=== PATIENT | female | born 2000 | race Caucasian/White ===

== ENCOUNTER 2022-11-10 01:22 | Inpatient (IN) ==
[2022-11-10] MEDS ORDERED: OXYTOCIN 30 UNITS/500 ML BAG IV PRN ×2 (03:34→04:05)
[2022-11-10] MEDS ORDERED: LIDOCAINE 1% LOCAL 20 ML VIAL INFIL PRN (03:34)
[2022-11-10] MEDS ORDERED: ePHEDrine sulfate 50 MG/ML AMP ONE (03:40)
[2022-11-10] MEDS ORDERED: fentaNYL citrate PF 100 MCG/2 ML VIAL ONE (03:40)
[2022-11-10] MEDS ORDERED: SODIUM CHLORIDE 0.9% PF INJ 10 ML VIAL ONE (03:40)
[2022-11-10] MEDS ORDERED: LIDOCAINE 2%/EPINEPHRINE 1:200,000 20 ML PF ONE ×2 (03:41→17:47)
[2022-11-10] MEDS ORDERED: fentaNYL 2MCG/ML ROPIVACAINE 1.25MG/ML 100 ML BAG EPI ONE (03:41)
[2022-11-10] MEDS ORDERED: BUPIVACAINE 0.25% PF 30 ML VIAL ONE (03:41)
[2022-11-10] MEDS: LACTATED RINGER'S 1,000 ML IV PRN ×4 (03:45→10:32)
--- NOTE | 2022-11-10 04:00 | History & Physical Report ---
Date of Service November 10, 2022 Assessment & Plan (1) with 38 completed weeks gestation: (2) Normal labor: Plan admit for early labor. epidural on demand. fetus category one. pit/arom as indicated. anticipate . Admission and Anticipated Discharge Date Admission Date: November 10, 2022 History of Present Illness Chief Complaint: contractions Primary Care Provider: NO PCP Patient is a 21yowf with iup at 38 4/7 weeks. she presents to labor and delivery with painful contractions. Was initially 1cm on admission and was monitored. Her contractions became much more painful to the point where she could not stand them and requested and epidural. She made cervical change to 3/100 and was admitted. The has been uncomplicated. OB Labs: Blood Type B Positive 04/28/22 Antibody Screen NEGATIVE 04/28/22 Hemoglobin 12.5 g/dl (12.0-16.0) 09/01/22 Hematocrit 37.9 % (37.0-47.0) 09/01/22 Mean Corpuscular Volume 86.1 fL (80.0-100.0) 04/28/22 Platelet Count 228 K/uL (130-400) 04/28/22 Rubella IgG Antibody Immune (Immune) 04/28/22 Rapid Plasma Reagin Nonreactive (Nonreactive) 04/28/22 Hepatitis B Surface Antigen. NON-REACTIVE (NON-REACTIVE) 04/28/22 Hepatitis C Antibody (EIA) NON-REACTIVE (NON-REACTIVE) 04/28/22 HIV (1&2) Ag and Ab Confirmation NON-REACTIVE (NON-REACTIVE) 04/28/22 Glucose 1 Hour 50 gm Load 132 mg/dl (70-130) H 09/01/22 OB Optional Labs: Chlamydia trachomatis RNA Not Detected (NotDetected) 04/28/22 Neisseria gonorrhoeae RNA Not Detected (NotDetected) 04/28/22 Labs Reviewed: cf/sma declines smp cfDNA low risk smp Declines msafp--mln gbs neg Allergies Allergy/AdvReac Type Severity Reaction Status Date / Time No Known Allergies Allergy Verified 11/03/22 13:37 Home Medications Medication Instructions Recorded Confirmed Type folic acid PO 04/25/22 11/03/22 History prenat.vits,leonel,gza-uhst-ovuwe 1 tab PO DAILY 01/06/23 07/17/23 History Patient History Medical History Varicella vaccination Surgical History No history of previous surgery Family History Grandfather (Paternal) Colorectal cancer Denies family history of Ovarian cancer Breast cancer Social History Smoking Status: Never smoker Second Hand Exposure: No; Do You Dip or Chew Tobacco: No; Tobacco Cessation Education Requested by Patient: No Hx Alcohol Use: No Hx Substance Use: No Preferred Language: Trinidadian Communication Ability: Effective Coal Shooter Required: No Beliefs That Will Affect Care: None marital status: marital status details: Sadiq Key [phone] Current Living Situation: Spouse Current Living Situation Comment: Lives with 2 dogs, and 2 cats current occupational status: employed 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 [employer] Feels Safe at Home: Yes Safety Concerns: Feels Safe At This Time Assistive Devices: Glasses OB History g1--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
[2022-11-10] MEDS ORDERED: BUTORPHANOL TARTRATE 1 MG/ML VIAL IV ONE (04:04)
[2022-11-10] MEDS ORDERED: BUTORPHANOL TARTRATE 1 MG/ML VIAL ONE (04:07)
[2022-11-10 04:08] LABS: Hematocrit (blood only) 37.8 % (37.0-47.0); Hemoglobin 12.4 g/dl (12.0-16.0); Mean Corpuscular Hemoglobin 28.1 pg (25.0-34.0); Mean Corpuscular Hgb Conc 32.8 g/dL (32.0-36.0); Mean Corpuscular Volume 85.7 fL (80.0-100.0); Mean Platelet Volume 11.4 fL (9.4-12.4); Platelet Count 204 K/uL (130-400); RDW Coefficient of Variation 14.2 % (11.5-14.5); Red Blood Count 4.41 M/uL (4.20-5.40); White Blood Count 12.35 K/ul (4.8-10.8)
[2022-11-10] MEDS ORDERED: NALOXONE HCL 1 MG in SODIUM CHLORIDE 0.9% 1000ML 1,000 ML IV PRN ×2 (04:42→21:18)
[2022-11-10] MEDS ORDERED: diphenhydrAMINE 50 MG/ML VIAL IV PRN ×2 (04:42→21:18)
[2022-11-10] MEDS ORDERED: ePHEDrine sulfate 50 MG/ML AMP IV PRN ×2 (04:42→21:18)
[2022-11-10] MEDS ORDERED: BUPIVACAINE 0.25% PF 30 ML VIAL EPI STA (04:42)
[2022-11-10] MEDS ORDERED: ROPIVACAINE 0.5% PF 5 MG/ML 20 ML VIAL EPI PRN (04:42)
[2022-11-10] MEDS ORDERED: BUPIVACAINE 0.25% PF 30 ML VIAL EPI PRN (04:42)
[2022-11-10] MEDS ORDERED: ONDANSETRON INJ 2 MG/ML 2 ML VIAL IV PRN ×2 (04:42→21:18)
[2022-11-10] MEDS ORDERED: fentaNYL 2MCG/ML ROPIVACAINE 1.25MG/ML 100 ML BAG EPI PRN (04:42)
[2022-11-10] MEDS ORDERED: fentaNYL citrate PF 100 MCG/2 ML VIAL EPI STA (04:42)
[2022-11-10] MEDS ORDERED: fentaNYL citrate PF 100 MCG/2 ML VIAL EPI PRN (04:42)
[2022-11-10] MEDS ORDERED: SODIUM CHLORIDE 0.9% PF INJ 10 ML VIAL EPI PRN (04:42)
[2022-11-10] MEDS ORDERED: NALBUPHINE HCL INJ 10 MG/ML AMP IV PRN ×2 (04:42→21:18)
[2022-11-10] MEDS ORDERED: LIDOCAINE 2% MPF LOCAL 5 ML VIAL EPI PRN (04:42)
[2022-11-10] MEDS ORDERED: SODIUM CHLORIDE 0.9% PF INJ 10 ML VIAL EPI STA (04:42)
[2022-11-10] MEDS ORDERED: NALOXONE HCL 0.4 MG/1 ML VIAL/CARP IV PRN ×2 (04:42→21:18)
[2022-11-10] MEDS ORDERED: LIDOCAINE 2%/EPINEPHRINE 1:200,000 20 ML PF EPI STA (04:42)
--- NOTE | 2022-11-10 04:42 | Anesthesiology Consultation ---
Date of Service November 10, 2022 Assessment & Plan Chart Review Chart Review: Acceptable Risk for Labor Epidural ASA ASA2 Proposed Anesthesia Anesthesia Type: Labor Epidural Risk / Benefits Reviewed With: PT / POA / Parent / Guardian, Accepts Plan and Informed Consent Obtained History Height/Weight Height: 5 ft 2 in Weight: 85.729 kg Allergies Allergy/AdvReac Type Severity Reaction Status Date / Time No Known Allergies Allergy Verified 11/03/22 13:37 Medications Home Medications Medication Instructions Recorded Confirmed Last Taken folic acid PO 04/25/22 11/03/22 11/09/22 21:00 prenat.vits,leonel,icq-lpxo-ogsey 1 tab PO DAILY 04/25/22 11/10/22 11/09/22 21:00 Active Medications Generic Name Dose Route Start Last Admin Trade Name Freq PRN Reason Stop Dose Admin Lactated Ringer's 1,000 mls @ 125 mls/hr 11/10/22 03:34 11/10/22 04:41 Lr IV 11/12/22 03:33 999 mls/hr .Q8H PRN Administration L&D Protocol Protocol Past Medical History Medical History Varicella vaccination Exercise / Class Metabolic Activity II 4-5 Yardwork/Stairs/Walk up hill Past Family History Family History Grandfather (Paternal) Colorectal cancer Denies family history of Ovarian cancer Breast cancer Past Surgical History Surgical History No history of previous surgery Past Anesthesia History No Hx of Anesthesia Complications and No Family Hx of Anesthesia Complications History of PONV No Hx of PONV and No Hx of Motion Sickness Social History Smoking Status: Never smoker Do You Dip or Chew Tobacco: No Hx Alcohol Use: No Hx Substance Use: No substance use type: does not use Review of Systems denies fever/cough/ colds/ chest pain/ SOB/ MERLYN denies MERLYN Physical Exam Vital Signs Last Vital Signs Temp 36.8 C 11/10/22 01:45 Pulse 137 H 11/10/22 05:14 Resp 16 11/10/22 01:45 BP 103/51 L 11/10/22 05:14 Pulse Ox 98 11/10/22 05:12 ENMT Mouth: no TMJ abnormality and no dentition abnormality Thyromental Distance: > or= 3.5 Finger Breadths Mallampati Class: II Neck neck extension not limited Respiratory normal respiratory effort; no respiratory distress Auscultation: lungs clear to auscultation bilaterally Cardiovascular Rate/Rhythm: regular rate and regular rhythm Neurologic moves all extremities Psychiatric Orientation: alert and oriented x 3 Testing Laboratory Results 11/10/22 03:48
--- NOTE | 2022-11-10 06:35 | Labor Progress Brief Note ---
Date of Service November 10, 2022 Subjective comfortable with epidural Assessment & Plan (1) Normal labor: (2) with 38 completed weeks gestation: Plan continue current management. fetus overall category one. anticipate . Admission and Anticipated Discharge Date Admission Date: November 10, 2022 Physical Exam Constitutional: WD/WN, vitals as above Psychiatric: A+Ox3, euthymic affect Genitourinary: cx--4-5/90/-2 toco--q2-3min efm--155 with mod variability small accels noted, +scalp stim, no decels Results & Data Vital Signs (Past 12 Hours) Vital Signs Temp Pulse Resp BP Pulse Ox 11/10/22 01:40 36.8 C 18 11/10/22 01:45 36.8 C 86 16 140/66 11/10/22 06:27 101 H 97 11/10/22 06:24 112 H 129/59 L 11/10/22 06:22 92 H 99 11/10/22 06:17 97 H 100 11/10/22 06:15 95 H 91 11/10/22 06:12 96 H 97 11/10/22 06:10 106 H 134/60 11/10/22 06:07 89 99 11/10/22 06:02 94 H 99 11/10/22 05:57 100 11/10/22 05:57 102 H 11/10/22 05:57 103 H 90 11/10/22 05:54 93 H 128/61 11/10/22 05:52 105 H 100 11/10/22 05:47 104 H 99 11/10/22 05:42 102 H 99 11/10/22 05:40 104 H 133/64 11/10/22 05:37 98 H 99 11/10/22 05:32 110 H 95 11/10/22 05:27 99 H 97 11/10/22 05:23 110 H 115/57 L 11/10/22 05:22 109 H 97 11/10/22 05:17 97 11/10/22 05:17 102 H 11/10/22 05:17 102 H 100/50 L 11/10/22 05:14 137 H 103/51 L 11/10/22 05:12 98 11/10/22 05:12 92 H 11/10/22 05:12 85 107/57 L 11/10/22 05:10 88 120/62 11/10/22 05:08 85 121/76 11/10/22 05:07 92 H 97 11/10/22 05:04 86 120/85 11/10/22 05:03 80 91 11/10/22 05:02 94 H 97 11/10/22 04:59 99 H 150/85 H 11/10/22 04:57 86 98 11/10/22 04:52 98 11/10/22 04:52 88 11/10/22 04:52 92 H 135/81 11/10/22 04:28 78 138/83 11/10/22 03:14 76 136/71 11/10/22 01:38 86 140/66 Coding Level of Care Code None Diagnoses Normal labor O80; Z37.9 with 38 completed weeks gestation Z3A.38
--- NOTE | 2022-11-10 07:02 | Obstetrical Progress Note ---
Date of Service November 10, 2022 Assessment & Plan (1) Normal labor: Plan small decel that has resolved. pit currently off. fetus had scalp stim when I recently checked her. She is afebrile. Will continue to monitor closely. Admission and Anticipated Discharge Date Admission Date: November 10, 2022 Subjective Patient had bladder drained and changed to her left side. then had a decel for about 3-4 minutes to the 70-80s that responded to position change, pit off, bolus. Physical Exam Constitutional: WD/WN, vitals as above Psychiatric: A+Ox3, euthymic affect Genitourinary: toco--q2-3, pit at 5, was not a prolonged contraction strip review. Initial baseline was in the 130s and shortly after the epidural baseline increased to the 150s. there have been a couple of variable type decelerations noted since then, until this most recent 3-4 minute decel that has resolved. Baseline now 150s with min to mod variability. Results & Data Vital Signs (Past 12 Hours) Vital Signs Temp Pulse Resp BP Pulse Ox 11/10/22 01:40 36.8 C 18 11/10/22 01:45 36.8 C 86 16 140/66 11/10/22 06:57 103 H 98 11/10/22 06:52 109 H 99 11/10/22 06:53 112 H 93 11/10/22 06:47 91 H 97 11/10/22 06:45 92 H 132/63 11/10/22 06:42 102 H 96 11/10/22 06:37 100 H 98 11/10/22 06:32 97 H 97 11/10/22 06:27 101 H 97 11/10/22 06:24 112 H 129/59 L 11/10/22 06:22 92 H 99 11/10/22 06:17 97 H 100 11/10/22 06:15 95 H 91 11/10/22 06:12 96 H 97 11/10/22 06:10 106 H 134/60 11/10/22 06:07 89 99 11/10/22 06:02 94 H 99 11/10/22 05:57 100 11/10/22 05:57 102 H 11/10/22 05:57 103 H 90 11/10/22 05:54 93 H 128/61 11/10/22 05:52 105 H 100 11/10/22 05:47 104 H 99 11/10/22 05:42 102 H 99 11/10/22 05:40 104 H 133/64 11/10/22 05:37 98 H 99 11/10/22 05:32 110 H 95 11/10/22 05:27 99 H 97 11/10/22 05:23 110 H 115/57 L 11/10/22 05:22 109 H 97 11/10/22 05:17 97 11/10/22 05:17 102 H 11/10/22 05:17 102 H 100/50 L 11/10/22 05:14 137 H 103/51 L 11/10/22 05:12 98 11/10/22 05:12 92 H 11/10/22 05:12 85 107/57 L 11/10/22 05:10 88 120/62 11/10/22 05:08 85 121/76 11/10/22 05:07 92 H 97 11/10/22 05:04 86 120/85 11/10/22 05:03 80 91 11/10/22 05:02 94 H 97 11/10/22 04:59 99 H 150/85 H 11/10/22 04:57 86 98 11/10/22 04:52 98 11/10/22 04:52 88 11/10/22 04:52 92 H 135/81 11/10/22 04:28 78 138/83 11/10/22 03:14 76 136/71 11/10/22 01:38 86 140/66 PG Care Time/CCT Total # of Minutes Spent Total Time Spent with Patient: Total time spent is greater than 50% in coordination of care (as documented) at patient's floor/unit and/or counseling patient: Coding Level of Care Code None Diagnoses Normal labor O80; Z37.9
[2022-11-10] MEDS ORDERED: ACETAMINOPHEN 500 MG TAB PO STA (12:20)
[2022-11-10] MEDS ORDERED: GENTAMICIN SULFATE 430 MG in DEXTROSE 5% 100 ML IV STA (12:21)
[2022-11-10] MEDS ORDERED: GENTAMICIN CONSULT ACTIVE PRN (12:21)
--- NOTE | 2022-11-10 12:26 | Labor Progress Brief Note ---
Date of Service November 10, 2022 Subjective Comfortable with epidural. Feeling hot, temp 38.2, maternal and tachycardia. Discussed diagnosis of chorioamnionitis with patient. Will start ampicillin 2g Q6h, gentamicin 5mg/kg Q24h. Will give dose of tylenol. FHT 160-170s, mod adam, +accels, occ decels - variable, not recurrent. SVE 5-6/100/0 Continue labor, abx for chorio. Assessment & Plan Admission and Anticipated Discharge Date Admission Date: November 10, 2022 Results & Data Vital Signs (Past 12 Hours) Vital Signs Temp Pulse Resp BP Pulse Ox 11/10/22 01:40 36.8 C 18 11/10/22 01:45 36.8 C 86 16 140/66 11/10/22 12:17 107 H 99 11/10/22 12:15 111 H 92 11/10/22 12:12 96 H 96 11/10/22 12:10 100 H 128/60 11/10/22 12:07 99 H 98 11/10/22 12:02 97 H 97 11/10/22 11:57 96 H 97 11/10/22 11:55 94 H 103/58 L 11/10/22 11:52 92 H 96 11/10/22 11:01 20 11/10/22 11:01 20 11/10/22 11:47 96 H 98 11/10/22 11:42 100 H 100 11/10/22 11:40 101 H 118/55 L 11/10/22 11:37 98 H 97 11/10/22 11:32 95 H 97 11/10/22 11:27 107 H 96 11/10/22 11:25 114 H 11/10/22 11:25 108 H 143/90 H 93 11/10/22 11:22 103 H 95 11/10/22 11:17 107 H 96 11/10/22 10:31 20 11/10/22 10:31 20 11/10/22 11:12 98 H 96 11/10/22 11:09 100 H 116/56 L 11/10/22 11:07 101 H 95 11/10/22 09:01 20 11/10/22 09:01 37.2 C 20 11/10/22 11:02 96 H 96 11/10/22 10:59 112 H 93 11/10/22 10:57 100 H 96 11/10/22 10:54 106 H 116/57 L 11/10/22 10:52 99 H 96 11/10/22 10:51 102 H 93 11/10/22 08:31 18 11/10/22 08:31 18 11/10/22 08:01 20 11/10/22 08:01 20 11/10/22 10:47 97 H 97 11/10/22 10:42 102 H 96 11/10/22 10:40 100 H 136/64 11/10/22 10:39 107 H 92 11/10/22 10:37 104 H 96 11/10/22 10:32 104 H 98 11/10/22 10:27 103 H 100 11/10/22 10:25 96 H 115/58 L 11/10/22 10:22 94 H 100 11/10/22 10:17 100 H 100 11/10/22 10:12 101 H 100 11/10/22 10:10 99 H 124/62 11/10/22 10:07 99 H 100 11/10/22 10:02 99 H 100 11/10/22 09:57 101 H 100 11/10/22 09:54 102 H 119/58 L 11/10/22 09:52 101 H 100 11/10/22 09:47 104 H 100 11/10/22 09:42 105 H 100 11/10/22 09:39 108 H 121/56 L 11/10/22 09:37 104 H 100 11/10/22 09:32 99 H 100 11/10/22 09:27 106 H 99 11/10/22 09:25 105 H 124/68 11/10/22 09:22 98 H 100 11/10/22 09:17 111 H 98 11/10/22 09:12 90 97 11/10/22 09:09 93 H 128/65 11/10/22 09:07 104 H 97 11/10/22 09:02 97 11/10/22 09:02 93 H 11/10/22 09:02 101 H 92 11/10/22 08:57 96 H 98 11/10/22 08:54 100 H 138/67 11/10/22 08:52 92 H 97 11/10/22 08:47 95 H 97 11/10/22 08:42 93 H 97 07/24/23 08:40 112 H 130/68 11/10/22 08:37 95 H 97 11/10/22 08:32 106 H 97 11/10/22 08:27 108 H 98 11/10/22 08:24 113 H 144/68 H 11/10/22 08:22 105 H 97 11/10/22 08:17 108 H 97 11/10/22 08:12 110 H 97 11/10/22 08:09 108 H 107/55 L 11/10/22 08:07 94 H 97 11/10/22 08:02 91 H 96 11/10/22 07:57 96 H 99 11/10/22 07:54 103 H 107/53 L 11/10/22 07:52 96 H 97 11/10/22 07:47 101 H 98 11/10/22 07:31 20 11/10/22 07:31 37.3 C 20 11/10/22 07:42 105 H 97 11/10/22 07:39 100 H 108/54 L 11/10/22 07:37 96 H 98 11/10/22 07:32 103 H 99 11/10/22 07:27 107 H 99 11/10/22 07:24 104 H 133/62 11/10/22 07:22 106 H 98 11/10/22 07:17 99 H 98 11/10/22 07:12 97 H 98 11/10/22 07:10 108 H 120/55 L 11/10/22 07:07 100 H 98 11/10/22 07:06 104 H 113/56 L 11/10/22 07:02 100 H 99 11/10/22 06:57 103 H 98 11/10/22 06:52 109 H 99 11/10/22 06:53 112 H 93 11/10/22 06:47 91 H 97 11/10/22 06:45 92 H 132/63 11/10/22 06:42 102 H 96 11/10/22 06:37 100 H 98 11/10/22 06:32 97 H 97 11/10/22 06:27 101 H 97 11/10/22 06:24 112 H 129/59 L 11/10/22 06:22 92 H 99 11/10/22 06:17 97 H 100 11/10/22 06:15 95 H 91 07/24/23 06:12 96 H 97 11/10/22 06:10 106 H 134/60 11/10/22 06:07 89 99 11/10/22 06:02 94 H 99 11/10/22 05:57 100 11/10/22 05:57 102 H 11/10/22 05:57 103 H 90 11/10/22 05:54 93 H 128/61 11/10/22 05:52 105 H 100 11/10/22 05:47 104 H 99 11/10/22 05:42 102 H 99 11/10/22 05:40 104 H 133/64 11/10/22 05:37 98 H 99 11/10/22 05:32 110 H 95 11/10/22 05:27 99 H 97 11/10/22 05:23 110 H 115/57 L 11/10/22 05:22 109 H 97 11/10/22 05:17 97 11/10/22 05:17 102 H 11/10/22 05:17 102 H 100/50 L 11/10/22 05:14 137 H 103/51 L 11/10/22 05:12 98 11/10/22 05:12 92 H 11/10/22 05:12 85 107/57 L 11/10/22 05:10 88 120/62 11/10/22 05:08 85 121/76 11/10/22 05:07 92 H 97 11/10/22 05:04 86 120/85 11/10/22 05:03 80 91 11/10/22 05:02 94 H 97 11/10/22 04:59 99 H 150/85 H 11/10/22 04:57 86 98 11/10/22 04:52 98 11/10/22 04:52 88 11/10/22 04:52 92 H 135/81 11/10/22 04:28 78 138/83 11/10/22 03:14 76 136/71 11/10/22 01:38 86 140/66 Coding Level of Care Code None Diagnoses
[2022-11-10] MEDS: AMPICILLIN 2,000 MG in SODIUM CHLORIDE 0.9% 50 ML IV SCH ×2 (13:23→19:49)
--- NOTE | 2022-11-10 14:43 | Pharmacy Report ---
Pharmacy PK ABX Note - Date of Service November 10, 2022 - Assessment and Plan Assessment 21 year old started on ampicillin and gentamicin for concerns for chorioamnionitis. Febrile with leukocytosis this AM. with 38 completed weeks gestation. Plan Gentamicin * Gentamicin 5 mg/kg iv q 24 hours - extended interval dosing appropriate for intrapartum/ * Renal function labs ordered for tomorrow AM * If therapy continues >72 hours, will consider ordering a trough level 30 min prior to the next dose Pharmacy will continue to follow and will adjust dose/frequency as necessary. Thank you.
--- NOTE | 2022-11-10 15:08 | Labor Progress Brief Note ---
Date of Service November 10, 2022 Subjective Comfortable w/ epidural Assessment & Plan (1) Normal labor: (2) Chorioamnionitis: Plan 21 yo G1 at 38 4/7 wga presented in labor, now dx w/ chorio VS - last temp febrile, just now finishing gent so will recheck Fetus cat 2- tachycardia slightly improved, mod variability, good scalp stim Labor - did have progression from this morning to about noon w/o pit. My exam is unchanged from noon. Has started tx for chorio w/ amp and gent w/ small improvement in baseline. Discussed starting pitocin once antibx have completed. Pt has had pit turned on and off 2x at this point from this morning. Discussed that if fetus does not tolerate pit again that there is likely something else going on and would rec CS due to intolerance. Pt verbalized understanding and in agreement GBS neg epidural prn Admission and Anticipated Discharge Date Admission Date: November 10, 2022 Physical Exam Genitourinary: SVE 5/80/0 EFM 165/mod/+accel/occ variable and early ctx q5-6 Results & Data Vital Signs (Past 12 Hours) Vital Signs Temp Pulse Resp BP Pulse Ox 11/10/22 13:59 101.1 F H 11/10/22 15:02 114 H 96 11/10/22 14:57 107 H 96 11/10/22 14:54 117 H 119/55 L 11/10/22 14:52 126 H 97 11/10/22 14:47 128 H 97 11/10/22 14:42 103 H 96 11/10/22 14:39 93 H 109/54 L 11/10/22 14:37 95 H 95 11/10/22 14:34 102 H 93 11/10/22 14:32 106 H 96 11/10/22 14:27 98 H 95 11/10/22 14:24 104 H 133/56 L 11/10/22 14:22 119 H 97 11/10/22 14:19 101 H 94 11/10/22 14:17 108 H 96 11/10/22 14:12 98 H 95 11/10/22 14:09 100 H 117/58 L 11/10/22 14:07 102 H 95 11/10/22 14:02 106 H 95 11/10/22 13:57 102 H 95 11/10/22 13:54 103 H 120/57 L 11/10/22 13:52 100 H 95 11/10/22 13:47 99 H 95 11/10/22 13:42 97 H 95 11/10/22 13:41 97 H 123/63 11/10/22 13:37 104 H 95 11/10/22 13:32 103 H 95 11/10/22 13:27 103 H 94 11/10/22 13:24 101.1 F H 109 H 20 125/62 11/10/22 13:22 106 H 97 11/10/22 13:17 102 H 97 11/10/22 13:01 20 11/10/22 13:01 20 11/10/22 13:12 94 H 95 11/10/22 13:10 94 H 116/55 L 11/10/22 13:07 98 H 97 11/10/22 13:02 107 H 98 11/10/22 12:57 97 H 96 11/10/22 12:56 92 H 94 11/10/22 12:54 100 H 126/63 11/10/22 12:52 97 H 97 11/10/22 12:47 95 H 97 11/10/22 12:48 95 H 93 11/10/22 12:42 104 H 99 11/10/22 12:39 96 H 124/64 11/10/22 12:37 88 97 11/10/22 12:36 98 H 93 11/10/22 12:31 20 11/10/22 12:31 20 11/10/22 12:32 109 H 95 11/10/22 11:31 20 11/10/22 11:31 20 11/10/22 12:27 105 H 97 11/10/22 12:28 105 H 93 11/10/22 12:25 105 H 123/73 11/10/22 12:22 111 H 97 11/10/22 12:17 107 H 99 11/10/22 12:15 111 H 92 11/10/22 12:12 96 H 96 11/10/22 12:10 101.1 F H 100 H 20 128/60 11/10/22 12:07 99 H 98 11/10/22 12:02 97 H 97 11/10/22 11:57 96 H 97 11/10/22 11:55 94 H 103/58 L 11/10/22 11:52 92 H 96 11/10/22 11:01 20 11/10/22 11:01 20 11/10/22 11:47 96 H 98 11/10/22 11:42 100 H 100 11/10/22 11:40 101 H 118/55 L 11/10/22 11:37 98 H 97 11/10/22 11:32 95 H 97 11/10/22 11:27 107 H 96 11/10/22 11:25 114 H 11/10/22 11:25 108 H 143/90 H 93 11/10/22 11:22 103 H 95 11/10/22 11:17 107 H 96 11/10/22 10:31 20 11/10/22 10:31 20 11/10/22 11:12 98 H 96 11/10/22 11:09 100 H 116/56 L 11/10/22 11:07 101 H 95 11/10/22 09:01 20 11/10/22 09:01 99.0 F 20 11/10/22 11:02 99.0 F 96 H 96 11/10/22 10:59 112 H 93 11/10/22 10:57 100 H 96 11/10/22 10:54 106 H 116/57 L 11/10/22 10:52 99 H 96 11/10/22 10:51 102 H 93 11/10/22 08:31 18 11/10/22 08:31 18 11/10/22 08:01 20 11/10/22 08:01 20 11/10/22 10:47 97 H 97 11/10/22 10:42 102 H 96 11/10/22 10:40 100 H 136/64 11/10/22 10:39 107 H 92 11/10/22 10:37 104 H 96 11/10/22 10:32 104 H 98 11/10/22 10:27 103 H 100 11/10/22 10:25 96 H 115/58 L 11/10/22 10:22 94 H 100 11/10/22 10:17 100 H 100 11/10/22 10:12 101 H 100 11/10/22 10:10 99 H 124/62 11/10/22 10:07 99 H 100 11/10/22 10:02 99 H 100 11/10/22 09:57 101 H 100 11/10/22 09:54 102 H 119/58 L 11/10/22 09:52 101 H 100 11/10/22 09:47 104 H 100 11/10/22 09:42 105 H 100 11/10/22 09:39 108 H 121/56 L 11/10/22 09:37 104 H 100 11/10/22 09:32 99 H 100 11/10/22 09:27 106 H 99 11/10/22 09:25 105 H 124/68 11/10/22 09:22 98 H 100 11/10/22 09:17 111 H 98 11/10/22 09:12 90 97 11/10/22 09:09 93 H 128/65 11/10/22 09:07 104 H 97 11/10/22 09:02 97 11/10/22 09:02 93 H 11/10/22 09:02 101 H 92 11/10/22 08:57 96 H 98 11/10/22 08:54 100 H 138/67 11/10/22 08:52 92 H 97 11/10/22 08:47 95 H 97 11/10/22 08:42 93 H 97 11/10/22 08:40 112 H 130/68 11/10/22 08:37 95 H 97 11/10/22 08:32 106 H 97 11/10/22 08:27 108 H 98 11/10/22 08:24 113 H 144/68 H 11/10/22 08:22 105 H 97 11/10/22 08:17 108 H 97 11/10/22 08:12 110 H 97 11/10/22 08:09 108 H 107/55 L 11/10/22 08:07 94 H 97 11/10/22 08:02 91 H 96 11/10/22 07:57 96 H 99 11/10/22 07:54 103 H 107/53 L 11/10/22 07:52 96 H 97 11/10/22 07:47 101 H 98 11/10/22 07:31 20 11/10/22 07:31 99.1 F 20 11/10/22 07:42 105 H 97 11/10/22 07:39 100 H 108/54 L 11/10/22 07:37 96 H 98 11/10/22 07:32 103 H 99 11/10/22 07:27 107 H 99 11/10/22 07:24 104 H 133/62 11/10/22 07:22 106 H 98 11/10/22 07:17 99 H 98 11/10/22 07:12 97 H 98 11/10/22 07:10 108 H 120/55 L 11/10/22 07:07 100 H 98 11/10/22 07:06 104 H 113/56 L 11/10/22 07:02 100 H 99 11/10/22 06:57 103 H 98 11/10/22 06:52 109 H 99 11/10/22 06:53 112 H 93 11/10/22 06:47 91 H 97 11/10/22 06:45 92 H 132/63 11/10/22 06:42 102 H 96 11/10/22 06:37 100 H 98 11/10/22 06:32 97 H 97 11/10/22 06:27 101 H 97 11/10/22 06:24 112 H 129/59 L 11/10/22 06:22 92 H 99 11/10/22 06:17 97 H 100 11/10/22 06:15 95 H 91 11/10/22 06:12 96 H 97 11/10/22 06:10 106 H 134/60 11/10/22 06:07 89 99 11/10/22 06:02 94 H 99 11/10/22 05:57 100 11/10/22 05:57 102 H 11/10/22 05:57 103 H 90 11/10/22 05:54 93 H 128/61 11/10/22 05:52 105 H 100 11/10/22 05:47 104 H 99 11/10/22 05:42 102 H 99 11/10/22 05:40 104 H 133/64 11/10/22 05:37 98 H 99 11/10/22 05:32 110 H 95 11/10/22 05:27 99 H 97 11/10/22 05:23 110 H 115/57 L 11/10/22 05:22 109 H 97 11/10/22 05:17 97 11/10/22 05:17 102 H 11/10/22 05:17 102 H 100/50 L 11/10/22 05:14 137 H 103/51 L 11/10/22 05:12 98 11/10/22 05:12 92 H 11/10/22 05:12 85 107/57 L 11/10/22 05:10 88 120/62 11/10/22 05:08 85 121/76 11/10/22 05:07 92 H 97 11/10/22 05:04 86 120/85 11/10/22 05:03 80 91 11/10/22 05:02 94 H 97 11/10/22 04:59 99 H 150/85 H 11/10/22 04:57 86 98 11/10/22 04:52 98 11/10/22 04:52 88 11/10/22 04:52 92 H 135/81 11/10/22 04:28 78 138/83 11/10/22 03:14 76 136/71 Coding Level of Care Code None Diagnoses Normal labor O80; Z37.9 Chorioamnionitis O41.1290
[2022-11-10] MEDS ORDERED: AZITHROMYCIN 500 MG in DEXTROSE 5% 250 ML IV STA (17:29)
[2022-11-10] MEDS ORDERED: CLINDAMYCIN/D5W 900 MG/50 ML BAG IV SCH ×2 (17:30→19:30)
[2022-11-10] MEDS ORDERED: CITRIC ACID/SODIUM CITRATE 15 ML UDC PO SCH (17:30)
--- NOTE | 2022-11-10 17:38 | Labor Progress Brief Note ---
Date of Service November 10, 2022 Subjective Comfortable w/ epidural. Pit was restarted, temp came down Assessment & Plan (1) Normal labor: (2) Chorioamnionitis: Plan 21 yo G1 at 38 4/7 wga presented in labor, now dx w/ chorio VS - temp improved Fetus cat 2- fetus no longer tachy but now deep variables again w/ pit Labor - pit now turned off x 3 due to deep variables w/ ctx. SVE unchanged. Discussed concern for intolerance to labor and inability to augment at pit just 3, so rec CS. Discussed indications, risks, benefits, alternatives with risks including infection, bleeding, injury to adjacent structures (bowel, bladder, ureters, blood vessels, nerves, baby), possible need for blood transfusion and/or life saving hysterectomy, VTE. Consent reviewed in detail w/ pt and signed after all questions answered to her satisfaction. Has already gotten tressa and deena, not due for add'l tx. Will add clinda 900 q8 and azithro 500mg x 1 for CS ppx. Will need at least one add'l dose, will see what temp does to determine further tx Admission and Anticipated Discharge Date Admission Date: November 10, 2022 Physical Exam Genitourinary: SVE 5/80/0 EFM 150/mod adam, multiple deep variables noted with pit at 3. Accel return up d/c of pit ctx q3-6 Results & Data Vital Signs (Past 12 Hours) Vital Signs Temp Pulse Resp BP Pulse Ox 11/10/22 13:59 101.1 F H 11/10/22 17:27 114 H 94 11/10/22 17:22 111 H 97 11/10/22 15:15 100.8 F H 11/10/22 17:17 104 H 96 11/10/22 17:12 102 H 96 11/10/22 17:10 103 H 135/60 11/10/22 17:08 107 H 93 11/10/22 17:07 104 H 96 11/10/22 17:02 108 H 96 11/10/22 16:31 20 11/10/22 16:31 20 11/10/22 16:57 97 H 96 11/10/22 16:54 122 H 119/63 11/10/22 16:52 109 H 97 11/10/22 16:47 103 H 97 11/10/22 16:42 101 H 96 11/10/22 16:40 96 H 115/65 11/10/22 16:37 100.4 F H 95 H 20 96 11/10/22 16:32 102 H 97 11/10/22 16:27 102 H 97 11/10/22 16:24 95 H 120/60 11/10/22 16:22 100 H 96 11/10/22 16:17 103 H 96 11/10/22 16:12 108 H 94 11/10/22 16:13 102 H 94 11/10/22 16:09 104 H 117/57 L 11/10/22 16:07 109 H 95 11/10/22 14:31 20 11/10/22 14:31 20 11/10/22 16:02 104 H 96 11/10/22 14:01 20 11/10/22 14:01 20 11/10/22 13:31 20 11/10/22 13:31 20 11/10/22 15:57 106 H 96 11/10/22 15:54 106 H 117/56 L 11/10/22 15:52 110 H 97 11/10/22 15:47 113 H 96 11/10/22 15:42 110 H 96 11/10/22 15:41 111 H 121/63 11/10/22 15:37 102 H 95 11/10/22 15:30 18 11/10/22 15:30 18 11/10/22 15:32 111 H 96 11/10/22 15:27 108 H 96 11/10/22 15:24 110 H 93/54 L 11/10/22 15:22 107 H 96 11/10/22 15:17 106 H 96 11/10/22 15:12 106 H 96 11/10/22 15:09 109 H 125/58 L 11/10/22 15:07 101 H 96 11/10/22 15:02 114 H 96 11/10/22 14:57 107 H 96 11/10/22 14:54 117 H 119/55 L 11/10/22 14:52 126 H 97 11/10/22 14:47 128 H 97 11/10/22 14:42 103 H 96 11/10/22 14:39 93 H 109/54 L 11/10/22 14:37 95 H 95 11/10/22 14:34 102 H 93 07/24/23 14:32 106 H 96 11/10/22 14:27 98 H 95 11/10/22 14:24 104 H 133/56 L 11/10/22 14:22 119 H 97 11/10/22 14:19 101 H 94 11/10/22 14:17 108 H 96 11/10/22 14:12 98 H 95 11/10/22 14:09 100 H 117/58 L 11/10/22 14:07 102 H 95 11/10/22 14:02 106 H 95 11/10/22 13:57 102 H 95 11/10/22 13:54 103 H 120/57 L 11/10/22 13:52 100 H 95 11/10/22 13:47 99 H 95 11/10/22 13:42 97 H 95 11/10/22 13:41 97 H 123/63 11/10/22 13:37 104 H 95 11/10/22 13:32 103 H 95 11/10/22 13:27 103 H 94 11/10/22 13:24 101.1 F H 109 H 20 125/62 11/10/22 13:22 106 H 97 11/10/22 13:17 102 H 97 11/10/22 13:01 20 11/10/22 13:01 20 11/10/22 13:12 94 H 95 11/10/22 13:10 94 H 116/55 L 11/10/22 13:07 98 H 97 11/10/22 13:02 107 H 98 11/10/22 12:57 97 H 96 11/10/22 12:56 92 H 94 11/10/22 12:54 100 H 126/63 11/10/22 12:52 97 H 97 11/10/22 12:47 95 H 97 11/10/22 12:48 95 H 93 11/10/22 12:42 104 H 99 11/10/22 12:39 96 H 124/64 11/10/22 12:37 88 97 11/10/22 12:36 98 H 93 11/10/22 12:31 20 11/10/22 12:31 20 07 12:32 109 H 95 11/10/22 11:31 20 11/10/22 11:31 20 11/10/22 12:27 105 H 97 11/10/22 12:28 105 H 93 11/10/22 12:25 105 H 123/73 11/10/22 12:22 111 H 97 11/10/22 12:17 107 H 99 11/10/22 12:15 111 H 92 11/10/22 12:12 96 H 96 11/10/22 12:10 101.1 F H 100 H 20 128/60 11/10/22 12:07 99 H 98 11/10/22 12:02 97 H 97 11/10/22 11:57 96 H 97 11/10/22 11:55 94 H 103/58 L 11/10/22 11:52 92 H 96 11/10/22 11:01 20 11/10/22 11:01 20 11/10/22 11:47 96 H 98 11/10/22 11:42 100 H 100 11/10/22 11:40 101 H 118/55 L 11/10/22 11:37 98 H 97 11/10/22 11:32 95 H 97 11/10/22 11:27 107 H 96 11/10/22 11:25 114 H 11/10/22 11:25 108 H 143/90 H 93 11/10/22 11:22 103 H 95 11/10/22 11:17 107 H 96 11/10/22 10:31 20 11/10/22 10:31 20 11/10/22 11:12 98 H 96 11/10/22 11:09 100 H 116/56 L 11/10/22 11:07 101 H 95 11/10/22 09:01 20 11/10/22 09:01 99.0 F 20 11/10/22 11:02 99.0 F 96 H 96 11/10/22 10:59 112 H 93 11/10/22 10:57 100 H 96 11/10/22 10:54 106 H 116/57 L 11/10/22 10:52 99 H 96 11/10/22 10:51 102 H 93 11/10/22 08:31 18 11/10/22 08:31 18 11/10/22 08:01 20 11/10/22 08:01 20 11/10/22 10:47 97 H 97 11/10/22 10:42 102 H 96 11/10/22 10:40 100 H 136/64 11/10/22 10:39 107 H 92 11/10/22 10:37 104 H 96 11/10/22 10:32 104 H 98 11/10/22 10:27 103 H 100 11/10/22 10:25 96 H 115/58 L 11/10/22 10:22 94 H 100 11/10/22 10:17 100 H 100 11/10/22 10:12 101 H 100 11/10/22 10:10 99 H 124/62 11/10/22 10:07 99 H 100 11/10/22 10:02 99 H 100 11/10/22 09:57 101 H 100 11/10/22 09:54 102 H 119/58 L 11/10/22 09:52 101 H 100 11/10/22 09:47 104 H 100 11/10/22 09:42 105 H 100 11/10/22 09:39 108 H 121/56 L 11/10/22 09:37 104 H 100 11/10/22 09:32 99 H 100 11/10/22 09:27 106 H 99 11/10/22 09:25 105 H 124/68 11/10/22 09:22 98 H 100 11/10/22 09:17 111 H 98 11/10/22 09:12 90 97 11/10/22 09:09 93 H 128/65 11/10/22 09:07 104 H 97 11/10/22 09:02 97 11/10/22 09:02 93 H 11/10/22 09:02 101 H 92 11/10/22 08:57 96 H 98 11/10/22 08:54 100 H 138/67 11/10/22 08:52 92 H 97 11/10/22 08:47 95 H 97 11/10/22 08:42 93 H 97 11/10/22 08:40 112 H 130/68 11/10/22 08:37 95 H 97 11/10/22 08:32 106 H 97 11/10/22 08:27 108 H 98 11/10/22 08:24 113 H 144/68 H 11/10/22 08:22 105 H 97 11/10/22 08:17 108 H 97 11/10/22 08:12 110 H 97 11/10/22 08:09 108 H 107/55 L 11/10/22 08:07 94 H 97 11/10/22 08:02 91 H 96 11/10/22 07:57 96 H 99 11/10/22 07:54 103 H 107/53 L 11/10/22 07:52 96 H 97 11/10/22 07:47 101 H 98 11/10/22 07:31 20 11/10/22 07:31 99.1 F 20 11/10/22 07:42 105 H 97 11/10/22 07:39 100 H 108/54 L 11/10/22 07:37 96 H 98 11/10/22 07:32 103 H 99 11/10/22 07:27 107 H 99 11/10/22 07:24 104 H 133/62 11/10/22 07:22 106 H 98 11/10/22 07:17 99 H 98 11/10/22 07:12 97 H 98 11/10/22 07:10 108 H 120/55 L 11/10/22 07:07 100 H 98 11/10/22 07:06 104 H 113/56 L 11/10/22 07:02 100 H 99 11/10/22 06:57 103 H 98 11/10/22 06:52 109 H 99 11/10/22 06:53 112 H 93 11/10/22 06:47 91 H 97 11/10/22 06:45 92 H 132/63 11/10/22 06:42 102 H 96 11/10/22 06:37 100 H 98 11/10/22 06:32 97 H 97 11/10/22 06:27 101 H 97 11/10/22 06:24 112 H 129/59 L 11/10/22 06:22 92 H 99 11/10/22 06:17 97 H 100 11/10/22 06:15 95 H 91 11/10/22 06:12 96 H 97 11/10/22 06:10 106 H 134/60 11/10/22 06:07 89 99 11/10/22 06:02 94 H 99 11/10/22 05:57 100 11/10/22 05:57 102 H 11/10/22 05:57 103 H 90 11/10/22 05:54 93 H 128/61 11/10/22 05:52 105 H 100 11/10/22 05:47 104 H 99 11/10/22 05:42 102 H 99 11/10/22 05:40 104 H 133/64 11/10/22 05:37 98 H 99 Coding Level of Care Code None Diagnoses Normal labor O80; Z37.9 Chorioamnionitis O41.1290
--- NOTE | 2022-11-10 17:44 | Communication Note ---
Date of Service: November 10, 2022 C Section called by OB for chorioamnionitis/ intolerance of labor. Epidural is working well. Will use epidural for c section.
[2022-11-10] MEDS ORDERED: MoRPHine SULFATE PF 1 MG/ML 10 ML AMP/VIAL ONE (18:17)
[2022-11-10] MEDS ORDERED: ONDANSETRON INJ 2 MG/ML 2 ML VIAL ONE (18:37)
[2022-11-10] MEDS ORDERED: OXYTOCIN 10 UNITS/ML VIAL ONE (18:38)
[2022-11-10] MEDS ORDERED: KETOROLAC 30 MG/ML VIAL ONE (18:38)
[2022-11-10 18:50] LABS: Base Excess Cord Venous Blood -3.5 mEq/L (-7.7-1.9); Cord Venous Blood HCO3 23 mmol/L (18.4-26.8); Cord Venous Blood PCO2 44 mmHg (30.4-57.2); Cord Venous Blood PO2 24 mmHg (14.1-43.3); Cord Venous Blood pH 7.32 (7.20-7.44); O2 Saturation Cord Venous Bld < 60.0 % (<68)
[2022-11-10] MEDS ORDERED: HYDROCORTISONE ACETATE 25 MG SUPP PR PRN (19:26)
[2022-11-10] MEDS ORDERED: MAGNESIUM HYDROXIDE SUSP 30 ML UDC PO PRN (19:26)
[2022-11-10] MEDS ORDERED: SENNA 8.6 MG TAB PO PRN (19:26)
[2022-11-10] MEDS ORDERED: DIPHTHERIA/TETANUS/PERTUSSIS Vaccine (Tdap, Age 7+yrs) 0.5mL SYR/VL IM ONE (19:26)
[2022-11-10] MEDS ORDERED: BENZOCAINE 20% AER SPR 82.5 GM CAN EXT PRN (19:26)
--- NOTE | 2022-11-10 19:27 | Anesthesia Procedure Note ---
Date of Service November 10, 2022 Anesthesia Post Epidural Note Vital Signs Vital Signs: Temp Pulse Resp BP Pulse Ox 38.0 C H 96 H 20 113/56 L 91 11/10/22 16:37 11/10/22 19:25 11/10/22 17:21 11/10/22 19:17 11/10/22 19:25 Pain Intensity Back: Pain Intensity: 0 Notes Mental Status: alert / awake / arousable Nausea / Vomiting: adequately controlled Pain: adequately controlled Airway Patency, RR, SpO2: stable & adequate BP & HR: stable & adequate Hydration State: stable & adequate Neuraxial Anesthesia: was administered and sensory block is resolving Anesthetic Complications: no major complications apparent and Pt Satisfied with anesthetic care Epidural: Removed without complications and With tip intact
--- NOTE | 2022-11-10 19:27 | Anesthesiology Progress Note ---
Date of Service November 10, 2022 Anesthesia Post Procedure Vital Signs Vital Signs: Temp Pulse Resp BP Pulse Ox 11/10/22 13:59 38.4 C H 11/10/22 01:40 36.8 C 18 11/10/22 01:45 36.8 C 86 16 140/66 11/10/22 19:21 94 H 96 11/10/22 19:19 106 H 93 11/10/22 19:17 94 H 113/56 L 11/10/22 19:16 102 H 99 11/10/22 17:21 20 11/10/22 17:21 20 11/10/22 17:47 106 H 97 11/10/22 17:42 107 H 97 11/10/22 17:37 105 H 96 11/10/22 17:36 105 H 93 11/10/22 17:32 117 H 98 11/10/22 17:27 114 H 94 11/10/22 17:22 111 H 97 11/10/22 15:15 38.2 C H 11/10/22 17:17 104 H 96 11/10/22 17:12 102 H 96 11/10/22 17:10 103 H 135/60 11/10/22 17:08 107 H 93 11/10/22 17:07 104 H 96 11/10/22 17:02 108 H 96 11/10/22 16:31 20 11/10/22 16:31 20 11/10/22 16:57 97 H 96 11/10/22 16:54 122 H 119/63 11/10/22 16:52 109 H 97 11/10/22 16:47 103 H 97 11/10/22 16:42 101 H 96 11/10/22 16:40 96 H 115/65 11/10/22 16:37 38.0 C H 95 H 20 96 11/10/22 16:32 102 H 97 11/10/22 16:27 102 H 97 11/10/22 16:24 95 H 120/60 11/10/22 16:22 100 H 96 11/10/22 16:17 103 H 96 11/10/22 16:12 108 H 94 11/10/22 16:13 102 H 94 11/10/22 16:09 104 H 117/57 L 11/10/22 16:07 109 H 95 11/10/22 14:31 20 11/10/22 14:31 20 11/10/22 16:02 104 H 96 11/10/22 14:01 20 11/10/22 14:01 20 11/10/22 13:31 20 11/10/22 13:31 20 11/10/22 15:57 106 H 96 11/10/22 15:54 106 H 117/56 L 11/10/22 15:52 110 H 97 11/10/22 15:47 113 H 96 11/10/22 15:42 110 H 96 11/10/22 15:41 111 H 121/63 11/10/22 15:37 102 H 95 11/10/22 15:30 18 11/10/22 15:30 18 11/10/22 15:32 111 H 96 11/10/22 15:27 108 H 96 11/10/22 15:24 110 H 93/54 L 11/10/22 15:22 107 H 96 11/10/22 15:17 106 H 96 11/10/22 15:12 106 H 96 11/10/22 15:09 109 H 125/58 L 11/10/22 15:07 101 H 96 11/10/22 15:02 114 H 96 11/10/22 14:57 107 H 96 11/10/22 14:54 117 H 119/55 L 11/10/22 14:52 126 H 97 11/10/22 14:47 128 H 97 11/10/22 14:42 103 H 96 11/10/22 14:39 93 H 109/54 L 11/10/22 14:37 95 H 95 11/10/22 14:34 102 H 93 11/10/22 14:32 106 H 96 11/10/22 14:27 98 H 95 11/10/22 14:24 104 H 133/56 L 11/10/22 14:22 119 H 97 11/10/22 14:19 101 H 94 11/10/22 14:17 108 H 96 11/10/22 14:12 98 H 95 11/10/22 14:09 100 H 117/58 L 11/10/22 14:07 102 H 95 11/10/22 14:02 106 H 95 11/10/22 13:57 102 H 95 11/10/22 13:54 103 H 120/57 L 11/10/22 13:52 100 H 95 11/10/22 13:47 99 H 95 11/10/22 13:42 97 H 95 11/10/22 13:41 97 H 123/63 11/10/22 13:37 104 H 95 11/10/22 13:32 103 H 95 11/10/22 13:27 103 H 94 11/10/22 13:24 38.4 C H 109 H 20 125/62 11/10/22 13:22 106 H 97 11/10/22 13:17 102 H 97 11/10/22 13:01 20 11/10/22 13:01 20 11/10/22 13:12 94 H 95 11/10/22 13:10 94 H 116/55 L 11/10/22 13:07 98 H 97 11/10/22 13:02 107 H 98 11/10/22 12:57 97 H 96 11/10/22 12:56 92 H 94 11/10/22 12:54 100 H 126/63 11/10/22 12:52 97 H 97 11/10/22 12:47 95 H 97 11/10/22 12:48 95 H 93 11/10/22 12:42 104 H 99 11/10/22 12:39 96 H 124/64 11/10/22 12:37 88 97 11/10/22 12:36 98 H 93 11/10/22 12:31 20 11/10/22 12:31 20 11/10/22 12:32 109 H 95 11/10/22 11:31 20 11/10/22 11:31 20 11/10/22 12:27 105 H 97 11/10/22 12:28 105 H 93 11/10/22 12:25 105 H 123/73 11/10/22 12:22 111 H 97 11/10/22 12:17 107 H 99 11/10/22 12:15 111 H 92 11/10/22 12:12 96 H 96 11/10/22 12:10 38.4 C H 100 H 20 128/60 11/10/22 12:07 99 H 98 11/10/22 12:02 97 H 97 11/10/22 11:57 96 H 97 11/10/22 11:55 94 H 103/58 L 11/10/22 11:52 92 H 96 11/10/22 11:01 20 11/10/22 11:01 20 11/10/22 11:47 96 H 98 11/10/22 11:42 100 H 100 11/10/22 11:40 101 H 118/55 L 11/10/22 11:37 98 H 97 11/10/22 11:32 95 H 97 11/10/22 11:27 107 H 96 11/10/22 11:25 114 H 11/10/22 11:25 108 H 143/90 H 93 11/10/22 11:22 103 H 95 11/10/22 11:17 107 H 96 11/10/22 10:31 20 11/10/22 10:31 20 11/10/22 11:12 98 H 96 11/10/22 11:09 100 H 116/56 L 11/10/22 11:07 101 H 95 11/10/22 09:01 20 11/10/22 09:01 37.2 C 20 11/10/22 11:02 37.2 C 96 H 96 11/10/22 10:59 112 H 93 11/10/22 10:57 100 H 96 11/10/22 10:54 106 H 116/57 L 11/10/22 10:52 99 H 96 11/10/22 10:51 102 H 93 11/10/22 08:31 18 11/10/22 08:31 18 11/10/22 08:01 20 11/10/22 08:01 20 11/10/22 10:47 97 H 97 11/10/22 10:42 102 H 96 11/10/22 10:40 100 H 136/64 11/10/22 10:39 107 H 92 11/10/22 10:37 104 H 96 11/10/22 10:32 104 H 98 11/10/22 10:27 103 H 100 11/10/22 10:25 96 H 115/58 L 11/10/22 10:22 94 H 100 11/10/22 10:17 100 H 100 11/10/22 10:12 101 H 100 11/10/22 10:10 99 H 124/62 11/10/22 10:07 99 H 100 11/10/22 10:02 99 H 100 11/10/22 09:57 101 H 100 11/10/22 09:54 102 H 119/58 L 11/10/22 09:52 101 H 100 11/10/22 09:47 104 H 100 11/10/22 09:42 105 H 100 11/10/22 09:39 108 H 121/56 L 11/10/22 09:37 104 H 100 11/10/22 09:32 99 H 100 11/10/22 09:27 106 H 99 11/10/22 09:25 105 H 124/68 11/10/22 09:22 98 H 100 11/10/22 09:17 111 H 98 11/10/22 09:12 90 97 11/10/22 09:09 93 H 128/65 11/10/22 09:07 104 H 97 11/10/22 09:02 97 11/10/22 09:02 93 H 11/10/22 09:02 101 H 92 11/10/22 08:57 96 H 98 11/10/22 08:54 100 H 138/67 11/10/22 08:52 92 H 97 11/10/22 08:47 95 H 97 11/10/22 08:42 93 H 97 11/10/22 08:40 112 H 130/68 11/10/22 08:37 95 H 97 11/10/22 08:32 106 H 97 11/10/22 08:27 108 H 98 11/10/22 08:24 113 H 144/68 H 11/10/22 08:22 105 H 97 11/10/22 08:17 108 H 97 11/10/22 08:12 110 H 97 11/10/22 08:09 108 H 107/55 L 11/10/22 08:07 94 H 97 11/10/22 08:02 91 H 96 11/10/22 07:57 96 H 99 11/10/22 07:54 103 H 107/53 L 11/10/22 07:52 96 H 97 11/10/22 07:47 101 H 98 11/10/22 07:31 20 11/10/22 07:31 37.3 C 20 11/10/22 07:42 105 H 97 11/10/22 07:39 100 H 108/54 L 11/10/22 07:37 96 H 98 11/10/22 07:32 103 H 99 11/10/22 07:27 107 H 99 11/10/22 07:24 104 H 133/62 11/10/22 07:22 106 H 98 11/10/22 07:17 99 H 98 11/10/22 07:12 97 H 98 11/10/22 07:10 108 H 120/55 L 11/10/22 07:07 100 H 98 11/10/22 07:06 104 H 113/56 L 11/10/22 07:02 100 H 99 11/10/22 06:57 103 H 98 11/10/22 06:52 109 H 99 11/10/22 06:53 112 H 93 11/10/22 06:47 91 H 97 11/10/22 06:45 92 H 132/63 11/10/22 06:42 102 H 96 11/10/22 06:37 100 H 98 11/10/22 06:32 97 H 97 11/10/22 06:27 101 H 97 11/10/22 06:24 112 H 129/59 L 11/10/22 06:22 92 H 99 11/10/22 06:17 97 H 100 11/10/22 06:15 95 H 91 11/10/22 06:12 96 H 97 11/10/22 06:10 106 H 134/60 11/10/22 06:07 89 99 11/10/22 06:02 94 H 99 11/10/22 05:57 100 11/10/22 05:57 102 H 11/10/22 05:57 103 H 90 11/10/22 05:54 93 H 128/61 11/10/22 05:52 105 H 100 11/10/22 05:47 104 H 99 11/10/22 05:42 102 H 99 11/10/22 05:40 104 H 133/64 11/10/22 05:37 98 H 99 11/10/22 05:32 110 H 95 11/10/22 05:27 99 H 97 11/10/22 05:23 110 H 115/57 L 11/10/22 05:22 109 H 97 11/10/22 05:17 97 11/10/22 05:17 102 H 11/10/22 05:17 102 H 100/50 L 11/10/22 05:14 137 H 103/51 L 11/10/22 05:12 98 11/10/22 05:12 92 H 11/10/22 05:12 85 107/57 L 11/10/22 05:10 88 120/62 11/10/22 05:08 85 121/76 11/10/22 05:07 92 H 97 11/10/22 05:04 86 120/85 11/10/22 05:03 80 91 11/10/22 05:02 94 H 97 11/10/22 04:59 99 H 150/85 H 11/10/22 04:57 86 98 11/10/22 04:52 98 11/10/22 04:52 88 11/10/22 04:52 92 H 135/81 11/10/22 04:28 78 138/83 11/10/22 03:14 76 136/71 11/10/22 01:38 86 140/66 Pain Intensity Back: Pain Intensity: 0 Transfer of Care Handoff Completed per policy Notes Mental Status: alert / awake / arousable Nausea / Vomiting: adequately controlled Pain: adequately controlled Airway Patency, RR, SpO2: stable & adequate BP & HR: stable & adequate Hydration State: stable & adequate Neuraxial Anesthesia: was administered and sensory block is resolving Anesthetic Complications: no major complications apparent and Pt Satisfied with anesthetic care
[2022-11-10] MEDS ORDERED: LACTATED RINGER'S 1,000 ML IV SCH (19:30)
--- NOTE | 2022-11-10 19:34 | Operative Report ---
PG Post Operative Report Pre & Post Diagnosis Operation Date: 11/10/22 17:30 Pre-Op Diagnosis: Intrauterine at 38 weeks Labor Chorioamnionitis Intolerance to Labor Post-Op Diagnosis: Intrauterine at 38 weeks Labor Chorioamnionitis Intolerance to Labor I identified the patient and participated in the time-out.: Yes Procedure Operation Date: 11/10/22 17:30 Actual Procedures p Primary Low Transverse Section in - Madelaine Ureña MD Surgeon Madelaine Ureña MD [employer] ARIELA Hartman Estimated Blood Loss 700 Findings Consistent with Post-Op Diagnosis Normal appearing uterus, bilateral fallopian tubes and ovaries. Viable male infant weighing 6lb 1oz and APGARs of 2 and 9 at 1 and 5 minutes, respectively. Left hysterotomy extension due to asynclitic positioning of head occurred at time of delivery. Fluids 1700cc crystalloid, 450cc UOP by smith catheter Specimens Placenta, cord blood, cord gases Drains Smith Anesthesia Type L&D Only Epidural Exists Complications none Disposition Accompanied Patient To Recovery: Yes Disposition: L&D Indications 21 yo G1 at 38 4/7 wga presented in labor early this morning. She arrived at 1 cm and progressed to 3cm spontaneously. She received an epidural for pain control and appeared to have SROM around 9am. After the epidural, ctx seemed to have spaced and so pitocin was started however had to be stopped at 3 and 5 due to decels. She was diagnosed with chorio due to and maternal tachycardia as well as maternal fever. Tylenol, ampicillin, and gentamicin were started which did slowly improve her temperature and tachycardia. During this time she did progress to 5cm spontaneously. Pitocin was restarted however again began having deep decels again. Due to intolerance to labor and chorioamnionitis, was recommended for CS Description of Procedure The patient was taken to the operating room after consents were ensured. The patient was properly identified. Epidural anesthesia was bolused without difficulty. The patient was placed in a dorsal supine position with left lateral tilt, then prepped and draped in normal sterile fashion. Surgical time out was performed. Antibiotics were given for prophylaxis - she had received ampicillin and gentamicin for chorioamnionitis, she additionally received clindamycin and azithromycin for pre-op prophylaxis. Anesthesia was tested to ensure adequate surgical levels. Pfannenstiel skin incision was performed and carried down to the underlying fascia with a knife. The fascia was then nicked in the midline and extended laterally with pickmelania and Arroyo scissors. Superior portion of the fascia was grasped with Kochers x2 and elevated off the underlying rectus muscles using blunt dissection. Inferior portion of the fascia was then grasped with Cesia clamps x2 and also elevated off the underlying muscles with blunt dissection. Midline was identified. The peritoneum was then entered and extended to provide adequate room for delivery of baby. A hand was inserted into the abdomen, uterus was noted to be clear of adhesions. Bladder blade was inserted, bladder flap was created in the usual fashion. A low transverse uterine incision was made in the uterus and extended bluntly in a superior to inferior fashion. There was meconium stained fluid at the time of rupture. head was grasped and elevated through the hysterotomy in an atraumatic fashion, however due to asyclinticism did cause a hysterotomy extension. The baby delivered in ANAYELI position, no nuchal cord. Remainder of the body delivered without incident. Nose and mouth were bulb suctioned on the surgical field. The cord was double clamped and cut, baby was handed off to awaiting pediatrics staff. Cord segment and blood were obtained. Placenta was then expressed from the uterus. The uterus was exteriorized. Several passes were made inside the uterus to remove the remaining membranes. Attention was then turned to the hysterotomy, which was then closed with a running locked suture of 0 Vicryl on a CTX needle including the left hysterotomy extension. An imbricating layer was then performed using 0-Monocryl. There was noted to be good hemostasis. The posterior cul-de-sac was then inspected and cleaned of clot and debris. The hysterotomy was again inspected and noted to be hemostatic. The uterus was returned to the abdomen. The right and left pericolic gutters were cleaned of all clot and debris. The hysterotomy was again noted to be hemostatic. Space of Retzius was noted to be hemostatic. The fascia was then closed with a running suture of 0 Vicryl on a CT1 needle. Subcutaneous tissue was copiously irrigated and noted to be hemostatic. Subcutaneous tissue was re-approximated using 2-0 plain gut. The skin was then closed with a running suture of 3-0 Monocryl in a subcuticular fashion. At termination of the procedure, fundal pressure was applied and a moderate amount of lochia was expressed. Pressure dressing was applied to the patient. She tolerated the procedure well. All sponge, needle, instrument counts were correct x 2. I attest to the content of the Intraoperative Record and any orders documented therein. Any exceptions are noted below. OB Procedure Charges 59254
[2022-11-10] MEDS ORDERED: MoRPHine SULFATE PF 1 MG/ML 10 ML AMP/VIAL INT SPINAL ONE (21:18)
[2022-11-10] MEDS ORDERED: NALOXONE HCL 0.08 MG in SYRINGE 1.8 ML IV PRN (21:18)
[2022-11-10] MEDS ORDERED: MEPERIDINE HCL 25 MG/ML CARP/VIAL IV PRN (21:18)
[2022-11-10] MEDS ORDERED: HYDROmorphone INJ 0.5 MG/0.5 ML SYR IV PRN (21:18)
[2022-11-10] MEDS ORDERED: MoRPHine SULFATE 2 MG/ML CARP IV PRN (21:18)
[2022-11-10] MEDS ORDERED: KETOROLAC 30 MG/ML VIAL IV PRN (21:18)
[2022-11-10] MEDS ORDERED: LACTATED RINGER'S 500 ML IV PRN (21:18)
[2022-11-10] MEDS ORDERED: DC INTRASPINAL MORPHINE SCH (21:30)
[2022-11-10] MEDS ORDERED: NO NARCOTICS OR SEDATIVES SCH (21:30)
[2022-11-10] MEDS ORDERED: SODIUM CHLORIDE 0.9% 1000ML 1,000 ML IV SCH (21:30)
[2022-11-10] MEDS: DOCUSATE SODIUM 100 MG CAP PO SCH (22:08)
[2022-11-10] MEDS: SIMETHICONE 80 MG CHEW PO SCH (22:08)
[2022-11-11] MEDS: AMPICILLIN 2,000 MG in SODIUM CHLORIDE 0.9% 50 ML IV SCH ×2 (00:20→06:15)
[2022-11-11] MEDS: OXYTOCIN 20 UNITS in LACTATED RINGER'S 1,000 ML IV SCH ×2 (00:22→08:04)
[2022-11-11] MEDS: metroNIDAZOLE 500 MG/100 ML BAG IV SCH ×3 (01:27→17:30)
--- NOTE | 2022-11-11 04:53 | Obstetrical Progress Note ---
Date of Service <Ileana Farley MD - Last Filed: 11/11/22 07:26> November 11, 2022 Assessment & Plan <Ileana Farley MD - Last Filed: 11/11/22 07:26> (1) delivery delivered: Patient with the above mentioned history and findings was evaluated at bedside and found awake, alert, oriented in all spheres, afebrile, and in no acute distress. Vital signs showed no fever and blood pressures remained stable with ranges between 104-113 systolic BP and 51-74 diastolic BP without symptoms of severity (e.g. vision changes, headaches, oliguria, etc.). Low transverse incision is clean, dry, and without signs of infection such as surrounding erythema or suppuration. She has not had a bowel movement yet, but bowel sounds were present in all four quadrants and no distension was present. She is tolerating her liquid diet well with no consequent nausea or vomiting. Her blood type is B positive and hemoglobin is adequate at 12.4 g/dL. Serologies are negative for GBS and patient is Rubella immune. Overall, patient is doing well clinically. Therefore, will encourage ambulation as tolerated and will resume regular diet. Indwelling He will be removed. She is currently completing her 24 hours of antibiotic therapy due to her history of fevers and chorioamnionitis. Will continue monitoring pain levels and management with current regimen. Patient is encouraged to breastfeed and to notify changes in normal lochia such as excessive bleeding (using more than 1 pad per hour), foul smell, or purulent appearance. All questions were answered. <Madelaine Ureña MD - Last Filed: 11/11/22 08:03> (1) delivery delivered: Subjective <Ileana Farley MD - Last Filed: 11/11/22 07:26> Lauren is a 21 y/o female who is POD #1 following delivery at 38 4/7 weeks due to intolerance to labor and chorioamnionitis. She reports feeling well overall this morning. Moderate abdominal cramping & 0/10 pain well managed on analgesics. Voiding well and without difficulty through indwelling He, which is contains 500mL of dark urine and without blood or sediment in the bag or the line. Currently on liquid diet and tolerating meals overnight. She has not ambulated yet. She is passing gas but has not been able to have a bowel movement yet. Has some persistent lochia with some improvement this morning. Currently breast feeding. Constitutional: no fever, no chills or no sweats Denies changes in vision. Denies shortness of breath or difficulty breathing. Cardiovascular: no chest pain or no palpitations Breast: no breast pain Genitourinary (female): no dysuria Neurologic: no headache(s) Physical Exam <Ileana Farley MD - Last Filed: 11/11/22 07:26> General: Alert. Oriented to person, time, and place. Afebrile. No acute distress. Eyes: pupils equal and reactive to light bilaterally, extraocular movements intact. Cardiac: Regular rate and rhythm, no murmurs/rubs/gallops. Respiratory: Clear to auscultation bilaterally a/p, no wheezes/rales/rhonchi. No increased work of breathing. Symmetrical chest rise. No respiratory distress. Abdomen: Soft, nontender, nondistended. Bowel sounds present. Low transverse surgical scar clean and without surrounding erythema or suppuration. Uterus: Uterine fundus firm, non-tender, and palpable 1 cm below umbilicus. Lower Extremities: No lower extremity edema or swelling. No deep calf pain. Gisela's negative bilaterally. Psych: Euthymic affect. Mood and affect congruence. Regular speech rate and content. Results & Data <Ileana Farley MD - Last Filed: 11/11/22 07:26> Vital Signs (Past 12 Hours) Vital Signs Temp Pulse Pulse Resp BP BP Pulse Ox 11/11/22 01:15 18 96 11/11/22 00:25 18 97 11/10/22 22:10 18 96 11/11/22 00:25 37 C 91 H 18 113/74 97 11/10/22 21:30 18 96 11/10/22 21:30 36.8 C 89 18 111/71 96 11/10/22 21:30 11/10/22 21:15 37.3 C 22 11/10/22 21:16 83 96 11/10/22 21:11 83 96 11/10/22 21:09 79 104/51 L 11/10/22 21:06 85 96 11/10/22 21:01 82 96 11/10/22 20:56 89 96 11/10/22 20:54 89 20 109/57 L 11/10/22 20:51 90 96 11/10/22 20:46 89 97 11/10/22 20:41 101 H 97 11/10/22 20:36 104 H 96 11/10/22 20:31 101 H 96 11/10/22 20:26 105 H 96 11/10/22 20:25 106 H 20 109/56 L 11/10/22 20:21 106 H 96 11/10/22 20:16 104 H 97 11/10/22 20:13 102 H 20 106/60 11/10/22 20:11 101 H 97 11/10/22 20:06 102 H 97 11/10/22 20:03 96 H 22 126/86 11/10/22 20:01 98 H 97 11/10/22 20:00 92 H 22 121/57 L 11/10/22 19:56 93 H 97 11/10/22 19:51 95 H 97 11/10/22 19:46 87 97 11/10/22 19:43 86 20 117/60 11/10/22 19:41 91 H 97 11/10/22 19:36 93 H 97 11/10/22 19:34 89 20 114/56 L 11/10/22 19:31 93 H 97 11/10/22 19:26 92 H 20 87 L 11/10/22 19:25 96 H 91 11/10/22 19:21 94 H 96 11/10/22 19:19 106 H 93 11/10/22 19:17 94 H 20 113/56 L 11/10/22 19:16 102 H 99 11/10/22 17:21 20 11/10/22 17:21 20 11/10/22 17:47 106 H 97 11/10/22 17:42 107 H 97 11/10/22 17:37 105 H 96 11/10/22 17:36 105 H 93 11/10/22 17:32 117 H 98 11/10/22 17:27 114 H 94 11/10/22 17:22 111 H 97 11/10/22 17:17 104 H 96 11/10/22 17:12 102 H 96 11/10/22 17:10 103 H 135/60 11/10/22 17:08 107 H 93 11/10/22 17:07 104 H 96 11/10/22 17:02 108 H 96 11/10/22 16:57 97 H 96 11/10/22 16:54 122 H 119/63 11/10/22 16:52 109 H 97 Pulse Ox O2 Del Method O2 Del Method 11/11/22 01:15 11/11/22 00:25 11/10/22 22:10 11/11/22 00:25 Room Air 11/10/22 21:30 11/10/22 21:30 Room Air 11/10/22 21:30 96 Room Air 11/10/22 21:15 11/10/22 21:16 11/10/22 21:11 11/10/22 21:09 11/10/22 21:06 11/10/22 21:01 11/10/22 20:56 11/10/22 20:54 11/10/22 20:51 11/10/22 20:46 11/10/22 20:41 11/10/22 20:36 11/10/22 20:31 11/10/22 20:26 11/10/22 20:25 11/10/22 20:21 11/10/22 20:16 11/10/22 20:13 11/10/22 20:11 11/10/22 20:06 11/10/22 20:03 11/10/22 20:01 11/10/22 20:00 11/10/22 19:56 11/10/22 19:51 11/10/22 19:46 11/10/22 19:43 11/10/22 19:41 11/10/22 19:36 11/10/22 19:34 11/10/22 19:31 11/10/22 19:26 11/10/22 19:25 11/10/22 19:21 11/10/22 19:19 11/10/22 19:17 11/10/22 19:16 11/10/22 17:21 11/10/22 17:21 11/10/22 17:47 11/10/22 17:42 11/10/22 17:37 11/10/22 17:36 11/10/22 17:32 11/10/22 17:27 11/10/22 17:22 11/10/22 17:17 11/10/22 17:12 11/10/22 17:10 11/10/22 17:08 11/10/22 17:07 11/10/22 17:02 11/10/22 16:57 11/10/22 16:54 11/10/22 16:52 <Madelaine Ureña MD - Last Filed: 11/11/22 08:03> Co-Signing Physician Notes Resident Physician Supervision Note: I interviewed and examined the patient. Discussed with Dr. Farley and agree with findings and plan as documented in the note. Any exceptions or clarifications are listed here: POD1 s/p pLTCS due to intolerance of labor, c/b chorio. VSS, no longer afebrile. Exam benign, dressing c/d/i. Continue routine pp care, continue amp/gent/flagyl x 24 hrs from delivery as clinda is on shortage. Documented By: Madelaine Ureña MD Resident Activity Tracking <Ileana Farley MD - Last Filed: 11/11/22 07:26> Resident Involvement: Resident Care Provided Care Provided: OB Delivery
[2022-11-11 07:27] LABS: Basophils # (auto) 0.01 K/uL (0-0.2); Basophils % (auto) 0.1 %; Eosinophils # (auto) 0.03 K/uL (0-0.50); Eosinophils % (auto) 0.3 %; Hematocrit (blood only) 29.5 % (37.0-47.0); Hemoglobin 9.5 g/dl (12.0-16.0); Immature Granulocytes # (auto) 0.02 K/uL (0.01-0.20); Immature Granulocytes % (auto) 0.2 %; Lymphocytes # (auto) 1.75 K/uL (1.2-3.4); Lymphocytes % (auto) 15.9 %; Mean Corpuscular Hgb Conc 32.2 g/dL (32.0-36.0); Mean Platelet Volume 11.6 fL (9.4-12.4); Monocytes # (auto) 0.98 K/uL (0.11-0.59); Monocytes % (auto) 8.9 %; Neutrophils # (auto) 8.22 K/uL (1.40-6.50); Neutrophils % (auto) 74.6 %; Platelet Count 152 K/uL (130-400); RDW Coefficient of Variation 14.9 % (11.5-14.5); RDW Standard Deviation 47.2 fL (36.4-46.3); Red Blood Count 3.39 M/uL (4.20-5.40); White Blood Count 11.01 K/ul (4.8-10.8)
[2022-11-11 07:47] LABS: Creatinine Clr Calc Pharmacy 128.8 ml/min; Est GFR (African American) 142.2 ml/min; Est GFR (Non-African American) 122.7 ml/min
[2022-11-11] MEDS: PRENATAL VITAMIN 1 TAB PO SCH (08:05)
[2022-11-11] MEDS: FERROUS SULFATE 325 MG TAB PO SCH (08:05)
[2022-11-11] MEDS: SIMETHICONE 80 MG CHEW PO SCH ×4 (08:05→21:00)
[2022-11-11] MEDS: DOCUSATE SODIUM 100 MG CAP PO SCH ×2 (08:05→21:00)
[2022-11-11] MEDS ORDERED: PROMETHAZINE HCL 25 MG in SODIUM CHLORIDE 0.9% 50 ML IV PRN (12:18)
[2022-11-11] MEDS ORDERED: KETOROLAC 30 MG/ML VIAL IV PRN (12:18)
[2022-11-11] MEDS ORDERED: ONDANSETRON INJ 2 MG/ML 2 ML VIAL IV PRN (12:18)
[2022-11-11] MEDS ORDERED: diphenhydrAMINE Capsule 25 MG CAP PO PRN (12:18)
[2022-11-11] MEDS ORDERED: diphenhydrAMINE 50 MG/ML VIAL IV PRN (12:18)
[2022-11-11] MEDS ORDERED: GENTAMICIN SULFATE 430 MG in DEXTROSE 5% 100 ML IV SCH ×2 (13:00→14:00)
[2022-11-11] MEDS: oxyCODONE/ACETAMINOPHEN 5mg/325mg TAB PO PRN ×2 (13:11→19:29)
[2022-11-11] MEDS: IBUPROFEN 600 MG TAB PO PRN ×2 (13:11→19:29)
[2022-11-11] MEDS ORDERED: bisacodyL 5 MG TABEC PO SCH (20:00)
[2022-11-12] MEDS: IBUPROFEN 600 MG TAB PO PRN ×3 (03:51→16:44)
[2022-11-12] MEDS: oxyCODONE/ACETAMINOPHEN 5mg/325mg TAB PO PRN ×3 (03:51→16:43)
[2022-11-12 06:26] LABS: Hematocrit (blood only) 28.2 % (37.0-47.0); Hemoglobin 9.2 g/dl (12.0-16.0)
--- NOTE | 2022-11-12 06:40 | Obstetrical Progress Note ---
Date of Service <Ileana Farley MD - Last Filed: 11/12/22 07:45> November 12, 2022 Assessment & Plan <Ileana Farley MD - Last Filed: 11/12/22 07:45> (1) delivery delivered: Patient with the above mentioned history and findings was evaluated at bedside and found awake, alert, oriented in all spheres, afebrile, and in no acute distress. Vital signs have remained afebrile and with stable blood pressures. She has remained without symptoms of severity (e.g. vision changes, headaches, oliguria, etc.). Low transverse incision is clean, dry, and without signs of infection such as surrounding erythema or suppuration. She has not had a bowel movement yet, but bowel sounds were present in all four quadrants and no distension was present. She was progressed to regular diet yesterday and has been tolerating great. Her He was also removed yesterday and is voiding spontaneously without difficulty. Her blood type is B positive and hemoglobin is 9.2 today without significant change to yesterday's values (9.5). Serologies are negative for GBS and patient is Rubella immune. Overall, patient is doing well clinically and progressing well. Will continue to encourage ambulation as tolerated and will resume regular diet. Antibiotics completed. Will continue monitoring pain levels and management with current regimen. Patient is encouraged to breastfeed and to notify changes in normal lochia such as excessive bleeding (using more than 1 pad per hour), foul smell, or purulent appearance. All questions were answered. <Tiffany Roa MD, FACOG - Last Filed: 11/12/22 07:50> (1) delivery delivered: Patient with the above mentioned history and findings was evaluated at bedside and found awake, alert, oriented in all spheres, afebrile, and in no acute distress. Vital signs have remained afebrile and with stable blood pressures. She has remained without symptoms of severity (e.g. vision changes, headaches, oliguria, etc.). Low transverse incision is clean, dry, and without signs of infection such as surrounding erythema or suppuration. She has not had a bowel movement yet, but bowel sounds were present in all four quadrants and no distension was present. She was progressed to regular diet yesterday and has been tolerating great. Her He was also removed yesterday and is voiding spontaneously without difficulty. Her blood type is B positive and hemoglobin is 9.2 today without significant change to yesterday's values (9.5). Serologies are negative for GBS and patient is Rubella immune. Overall, patient is doing well clinically and progressing well. Will continue to encourage ambulation as tolerated and will resume regular diet. Antibiotics completed. Will continue monitoring pain levels and management with current regimen. Patient is encouraged notify changes in normal lochia such as excessive bleeding (using more than 1 pad per hour), foul smell, or purulent appearance. All questions were answered. Day #:: 2 Subjective <Ileana Farley MD - Last Filed: 11/12/22 07:45> Lauren is a 21 y/o female who is POD #2 following delivery at 38 4/7 weeks due to intolerance to labor and chorioamnionitis. She reports feeling well overall this morning. Moderate abdominal cramping & 0/10 pain well managed on analgesics. Voiding well spontaneously. Currently on regular diet and tolerating meals. She has been able to ambulate without issues. She is passing gas but has not been able to have a bowel movement yet. Has some persistent lochia with some improvement this morning. Currently bottle feeding. Constitutional: no fever, no chills or no sweats Denies changes in vision. Denies shortness of breath or difficulty breathing. Cardiovascular: no chest pain or no palpitations Breast: no breast pain Genitourinary (female): no dysuria Neurologic: no headache(s) Physical Exam <Ileana Farley MD - Last Filed: 11/12/22 07:45> General: Alert. Oriented to person, time, and place. Afebrile. No acute distress. Eyes: pupils equal and reactive to light bilaterally, extraocular movements intact. Cardiac: Regular rate and rhythm, no murmurs/rubs/gallops. Respiratory: Clear to auscultation bilaterally a/p, no wheezes/rales/rhonchi. No increased work of breathing. Symmetrical chest rise. No respiratory distress. Abdomen: Soft, nontender, nondistended. Bowel sounds present. Low transverse surgical scar clean and without surrounding erythema or suppuration. Uterus: Uterine fundus firm, non-tender, and palpable below umbilicus. Lower Extremities: No lower extremity edema or swelling. No deep calf pain. Gisela's negative bilaterally. Psych: Euthymic affect. Mood and affect congruence. Regular speech rate and content. Results & Data <Ileana Farley MD - Last Filed: 11/12/22 07:45> Vital Signs (Past 12 Hours) Vital Signs Temp Pulse Resp BP Pulse Ox O2 Del Method 11/11/22 23:45 Room Air 11/11/22 23:45 36.5 C 79 18 100/64 97 Room Air 11/11/22 20:45 36.6 C 85 18 102/65 96 Room Air <Tiffany Roa MD, FACOG - Last Filed: 11/12/22 07:50> Co-Signing Physician Notes Resident Physician Supervision Note: I was present with Dr. Farley during the history and exam. I discussed the case with the resident and agree with the findings and plan as documented in the note. Any exceptions or clarifications are listed here: stable, doing well. eating, voiding, ambulating. pain well controlled. bottle feeding. bleeding decreased. abd soft ff 2 down nt, incision c/d/i, ext nt calves. pod#3 s/p C/S. unsure but may desire to stay until tomorrow. reviewed dc instructions in case changes mind. rh pos, ri. Documented By: Tiffany Roa MD, FACOG Resident Activity Tracking <Ileana Farley MD - Last Filed: 11/12/22 07:45> Resident Involvement: Resident Care Provided Care Provided: OB Delivery
[2022-11-12 06:42] LABS: Creatinine Clr Calc Pharmacy 143.4 ml/min; Est GFR (African American) 147.3 ml/min; Est GFR (Non-African American) 127.1 ml/min
[2022-11-12] MEDS: DOCUSATE SODIUM 100 MG CAP PO SCH ×2 (09:06→20:56)
[2022-11-12] MEDS: SIMETHICONE 80 MG CHEW PO SCH ×4 (09:06→20:56)
[2022-11-12] MEDS: FERROUS SULFATE 325 MG TAB PO SCH (09:06)
[2022-11-12] MEDS: PRENATAL VITAMIN 1 TAB PO SCH (09:06)
[2022-11-12] MEDS ORDERED: bisacodyL 10 MG SUPP PR PRN (19:16)
[2022-11-13] MEDS: oxyCODONE/ACETAMINOPHEN 5mg/325mg TAB PO PRN ×4 (00:03→12:29)
[2022-11-13] MEDS: IBUPROFEN 600 MG TAB PO PRN ×4 (00:04→12:29)
--- NOTE | 2022-11-13 06:47 | Obstetrical Progress Note ---
Date of Service <Ileana Farley MD - Last Filed: 11/13/22 08:18> November 13, 2022 Assessment & Plan <Ileana Farley MD - Last Filed: 11/13/22 08:18> (1) delivery delivered: Patient with the above mentioned history and findings was evaluated at bedside and found awake, alert, oriented in all spheres, afebrile, and in no acute distress. Vital signs have remained afebrile and with stable blood pressures. She has remained without symptoms of severity (e.g. vision changes, headaches, oliguria, etc.). Low transverse incision is clean, dry, and without signs of infection such as surrounding erythema or suppuration. She has not had a bowel movement yet, but bowel sounds were present in all four quadrants and no distension was present. She has been tolerating her diet well and has been voiding without difficulty. Her blood type is B positive and hemoglobin is 9.2. Serologies are negative for GBS and patient is Rubella immune. Overall, patient is doing well clinically and progressing well. Will continue to encourage ambulation as tolerated and will resume regular diet. Antibiotics completed. Will continue monitoring pain levels and management with current regimen. Patient is encouraged to breastfeed and to notify changes in normal lochia such as excessive bleeding (using more than 1 pad per hour), foul smell, or purulent appearance. Discharge instructions were discussed. she is to make an appointment with her OB in 6 weeks for follow up evaluation. All questions were answered. <Orin Acuna DO - Last Filed: 11/13/22 08:36> (1) delivery delivered: Subjective <Ileana Farley MD - Last Filed: 11/13/22 08:18> aLuren is a 21 y/o female who is POD #3 following delivery at 38 4/7 weeks due to intolerance to labor and chorioamnionitis. She reports feeling well overall this morning. Moderate abdominal cramping & 0/10 pain well managed on analgesics. Voiding well spontaneously. Currently on regular diet and tolerating meals. She has been able to ambulate without issues. She is passing gas but has not been able to have a bowel movement yet. Has some persistent lochia with some improvement this morning. Currently bottle feeding. Constitutional: no fever, no chills or no sweats Denies changes in vision. Denies shortness of breath or difficulty breathing. Cardiovascular: no chest pain or no palpitations Breast: no breast pain Genitourinary (female): no dysuria Neurologic: no headache(s) Physical Exam <Ileana Farley MD - Last Filed: 11/13/22 08:18> General: Alert. Oriented to person, time, and place. Afebrile. No acute distress. Eyes: pupils equal and reactive to light bilaterally, extraocular movements intact. Cardiac: Regular rate and rhythm, no murmurs/rubs/gallops. Respiratory: Clear to auscultation bilaterally a/p, no wheezes/rales/rhonchi. No increased work of breathing. Symmetrical chest rise. No respiratory distress. Abdomen: Soft, nontender, nondistended. Bowel sounds present. Low transverse surgical scar clean and without surrounding erythema or suppuration. Uterus: Uterine fundus firm, non-tender, and palpable below umbilicus. Lower Extremities: No lower extremity edema or swelling. No deep calf pain. Gisela's negative bilaterally. Psych: Euthymic affect. Mood and affect congruence. Regular speech rate and content. Results & Data <Ileana Farley MD - Last Filed: 11/13/22 08:18> Vital Signs (Past 12 Hours) Vital Signs Temp Pulse Resp BP Pulse Ox O2 Del Method 11/13/22 00:05 36.3 C L 82 18 119/80 98 Room Air <Orin Acuna DO - Last Filed: 11/13/22 08:36> Co-Signing Physician Notes Resident Physician Supervision Note: I was present with Dr. Farley during the history and exam. I discussed the case with the resident and agree with the findings and plan as documented in the note. Any exceptions or clarifications are listed here: POD#3 doing well. Desires DC home. DC instructions reviewed, followup 6w PP. Documented By: Orin Acuna DO Resident Activity Tracking <Ileana Farley MD - Last Filed: 11/13/22 08:18> Resident Involvement: Resident Care Provided Care Provided: OB Delivery
[2022-11-13] MEDS: SIMETHICONE 80 MG CHEW PO SCH ×2 (07:45→12:29)
[2022-11-13] MEDS: DOCUSATE SODIUM 100 MG CAP PO SCH (07:45)
[2022-11-13] MEDS: PRENATAL VITAMIN 1 TAB PO SCH (07:45)
[2022-11-13] MEDS: FERROUS SULFATE 325 MG TAB PO SCH (07:45)
[2022-11-13 08:19] LABS: Creatinine Clr Calc Pharmacy 138.9 ml/min; Est GFR (African American) 145.8 ml/min; Est GFR (Non-African American) 125.8 ml/min
--- NOTE | 2022-11-17 09:10 | Discharge Summary ---
Date of Service November 17, 2022 Admission HPI Per Admitting Provider Patient is a 21yowf with iup at 38 4/7 weeks. she presents to labor and delivery with painful contractions. Was initially 1cm on admission and was monitored. Her contractions became much more painful to the point where she could not stand them and requested and epidural. She made cervical change to 3/100 and was admitted. The has been uncomplicated. Discharge Data Consultations 11/10/22 03:35 Consult Anesthesiology Stat 11/10/22 17:24 Consult Anesthesiology Stat Procedures Performed Operation Date: 11/10/22 17:30 Actual Procedures p Section in LD - Madelaine Ureña MD Hospital Course (1) Supervision of normal first : (2) Chorioamnionitis: (3) delivery delivered: Plan Patient was admitted and observed. She got an epidural and her contractions spaced. SROM at 9 am. Labor needed augmentation with pitocin but fetus unfortunately did not tolerate. The patient eventually developed chorio and re quired IV antibiotics. She progressed to 5cm but was unable to progress further because of nonreassuring fht and need for pitocin which precipitated a poor tracing. Patient under went a primary low transverse c/s to deliver a 6#1oz baby with apgars of 2/8. The head was asynclitic in the pelvis and there was a hysterotomy extension into the cervix that was repaired. Her postop course was uncomlicated. She received IV antibiotics for 24 hours and remained afebrile. She tolerated a regular diet, ambulated, tolerated po pain meds and voided after the removal of her smith. She was d/c home on pod #2. Instructions given. Coding Level of Care Code None Diagnoses Supervision of normal first Z34.00 Chorioamnionitis O41.1290 delivery delivered O82
== END 2022-11-13 13:00 | disposition home or self-care (01) | DRG 788 ==
LOC: OPB 01:22 → 4S1 01:26 → 4E2 22:29